=== PATIENT | male | born 1935 | race Caucasian/White ===

== ENCOUNTER 2019-07-12 16:01 | Observation (INO) | payer MEDICARE, OTHER ==
[~2019-07-12] VITALS: Ht 170.2 cm; Wt 67.1 kg
[~2019-07-12 16:01] MED LIST: ATOR10; Aspir 8181 MG PO; Fish Oil 10001000 MG PO; GENT.3OPSA OD; HYDACE5 PO; METF500 PO; OXYACE5T PO; TAMS.4ER PO; THERA1 EACH PO
[2019-07-12] MEDS ORDERED: METOPROLOL SUCC25 MG PO (16:16)
[2019-07-12] MEDS ORDERED: Prinivil5 MG PO (16:16)
[2019-07-12] MEDS ORDERED: LEVSOD50 PO (16:16)
[2019-07-12] MEDS ORDERED: ATORVASTATIN CA40 MG PO (16:16)
[2019-07-12 16:36] LABS: BASOPHILS ABSOLUTE AUTO 0.09 K/mm3 (0.00-0.23); BASOPHILS PERCENT AUTO 1 % (0-2); EOSINOPHILS ABSOLUTE AUTO 0.41 K/mm3 (0.00-0.68); EOSINOPHILS PERCENT AUTO 4 % (0-6); Hematocrit 44.4 % (37.0-53.0); Hemoglobin 14.2 g/dL (13.5-17.5); IMMATURE GRAN ABSOLUTE AUTO 0.03 K/mm3 (0.00-0.10); IMMATURE GRAN PERCENT AUTO 0 % (0-1); LYMPHOCYTES ABSOLUTE AUTO 2.51 K/mm3 (0.84-5.20); LYMPHOCYTES PERCENT AUTO 24 % (21-46); MONOCYTES ABSOLUTE AUTO 0.91 K/mm3 (0.16-1.47); MONOCYTES PERCENT AUTO 9 % (4-13); Mean Corpuscular HGB 30.7 pg (26.0-34.0); Mean Corpuscular Volume 96 fL (80-100); Mean Platelet Volume 11.3 fL (9.1-12.4); NEUTROPHILS ABSOLUTE AUTO 6.64 K/mm3 (1.96-9.15); NEUTROPHILS PERCENT AUTO 63 % (41-73); Platelet Count 236 K/mm3 (150-400); RDW Coefficient Variation 13.6 % (11.7-14.2); RDW Standard Deviation 48.2 fL (35.1-46.3); Red Blood Cell Count 4.62 M/mm3 (4.30-5.90); White Blood Cell Count 10.59 K/mm3 (4.00-11.30)
[2019-07-12 16:50] LABS: Alanine Aminotransfer (ALT/SGP 24 U/L (12-78); Albumin, Blood 3.5 g/dL (3.4-5.0); Albumin/Globulin Ratio 0.9 (0.8-1.8); Alk Phos 53 U/L (50-136); Anion Gap 6 mmol/L (6-16); Aspartate Aminotrans (AST/SGOT 25 U/L (12-37); Bilirubin, Total 0.3 mg/dL (0.1-1.0); Blood Urea Nitrogen 11 mg/dL (8-24); Bun/Creatinine Ratio 13.1 (12.0-20.0); CO2, Blood 27 mmol/L (21-32); Calcium, Blood 9.3 mg/dL (8.5-10.1); Chloride, Blood 107 mmol/L (98-108); Creatinine, Blood 0.84 mg/dL (0.60-1.20); Globulin, Blood 3.9 g/dL (2.2-4.0); Glomerular Filtration Rate >60 (60-); Glucose, Blood 103 mg/dL (70-99); Potassium, Blood 3.9 mmol/L (3.5-5.5); Sodium, Blood 140 mmol/L (136-145); Total Protein, Blood 7.4 g/dL (6.4-8.2); Troponin I <0.015 ng/mL (0.000-0.040)
[2019-07-12] MEDS ORDERED: THERA-D2000 UNIT PO (17:30)
--- NOTE | 2019-07-12 21:45 | NUR ---
*LATE ENTRY* PCU HEADLINE WRITER CALLED AROUND 2119 STATING PT WAS SINUS STELLA W/HR 48. NOTIFIED CHARGE NURSE EARL Harvey. SINCE PT WAS STELLA EARLIER IN ER SHE RECOMMENDED MONITORING PT @THIS TIME. PT DENIES SOB, NAUSEA, HEART PALPATIONS OR ANY CHEST PAIN/PRESSURE.
[2019-07-12 23:17] LABS: CPK Creatine Kinase 60 U/L (39-308); Creatine Kinase MB Index 3.3 (0.0-4.0); Troponin I <0.015 ng/mL (0.000-0.040)
--- NOTE | 2019-07-13 04:43 | NUR ---
SHIFT SUMMARY ADMITTED LAST NIGHT FOR CHEST PRESSURE/PAIN. DESCRIBES PAIN A "SQUEEZING BAND ACROSS CHEST" & STATES IT "FELT IF MY HEART WAS QUIVERING." AOX4. FOLLOWS DIRECTIONS, ANSWERS QUESTIONS APPROPRIATELY. DENIES CHILLS, DYSPNEA, NAUSEA, EMESIS, PALPATATIONS. REPORTS MILD HEADACHE THIS AM, MEDICATED W/TYLENOL PER ORDERS. DENIES ANY CHEST PAIN OR PRESSURE T/O SHIFT. STATES HE HAS FELT "BETTER" SINCE COMING TO THE HOSPITAL. TELE IN PLACE, PT SINUS STELLA W/HR 47-50'S. STEADY GAIT, INDEPENDENT IN ROOM, CALL LIGHT IN REACH. WILL CONTINUE TO MONITOR.
[2019-07-13 07:29] LABS: Alanine Aminotransfer (ALT/SGP 22 U/L (12-78); Albumin, Blood 2.9 g/dL (3.4-5.0); Albumin/Globulin Ratio 0.9 (0.8-1.8); Alk Phos 44 U/L (50-136); Anion Gap 4 mmol/L (6-16); Aspartate Aminotrans (AST/SGOT 24 U/L (12-37); Bilirubin, Total 0.4 mg/dL (0.1-1.0); Blood Urea Nitrogen 16 mg/dL (8-24); Bun/Creatinine Ratio 16.7 (12.0-20.0); CO2, Blood 27 mmol/L (21-32); Calcium, Blood 8.9 mg/dL (8.5-10.1); Chloride, Blood 112 mmol/L (98-108); Creatinine, Blood 0.96 mg/dL (0.60-1.20); Globulin, Blood 3.4 g/dL (2.2-4.0); Glomerular Filtration Rate >60 (60-); Glucose, Blood 109 mg/dL (70-99); Potassium, Blood 4.2 mmol/L (3.5-5.5); Sodium, Blood 143 mmol/L (136-145); Total Protein, Blood 6.3 g/dL (6.4-8.2)
[2019-07-13 07:35] LABS: CPK Creatine Kinase 62 U/L (39-308); Creatine Kinase MB 1.8 ng/mL (0.0-3.6); Creatine Kinase MB Index 2.9 (0.0-4.0); Troponin I <0.015 ng/mL (0.000-0.040)
[2019-07-13] MEDS ORDERED: NITR.4SL SL (12:52)
--- NOTE | 2019-07-13 13:29 | NUR ---
DISCHARGE INSTRUCTIONS VERBALIZED TO PATIENT. A PRINTED COPY OF THE DISCHARGE INSTRUCTIONS WELL EDUCATIONAL MATERIAL REGARDING CHEST PAIN AND ECHOCARDIOGRAM ALSO PROVIDED TO THE PATIENT FOR REFERENCE. IV AND TELE REMOVED. PATIENT TO FOLLOW-UP FOR HIS ECHO ON AN OUTPATIENT BASIS PER DR KANG. PATIENT IN ROOM GETTING READY TO DISCHARGE.
--- NOTE | 2019-07-13 13:41 | NUR ---
PATIENT DISCHARGED HOME WITH AT 1330.
== END 2019-07-13 13:41 | disposition home or self-care (01) ==
LOC: ER 16:01 → MEDS 16:02
PROVIDERS: Emergency Medicine; ADMIT Internal Medicine
DX: R07.9 Chest pain, unspecified (principal); I16.0 Hypertensive urgency; R01.1 Cardiac murmur, unspecified; I25.10 Atherosclerotic heart disease of native coronary artery without angina pectoris; E11.51 Type 2 diabetes mellitus with diabetic peripheral angiopathy without gangrene; I73.9 Peripheral vascular disease, unspecified; I10 Essential (primary) hypertension; E78.5 Hyperlipidemia, unspecified; E03.9 Hypothyroidism, unspecified; K21.9 Gastro-esophageal reflux disease without esophagitis; M19.90 Unspecified osteoarthritis, unspecified site; Z87.442 Personal history of urinary calculi; Z95.1 Presence of aortocoronary bypass graft; Z79.899 Other long term (current) drug therapy; Z79.82 Long term (current) use of aspirin; Z79.84 Long term (current) use of oral hypoglycemic drugs; Z88.0 Allergy status to penicillin; Z87.891 Personal history of nicotine dependence; Z85.46 Personal history of malignant neoplasm of prostate; Z91.14 Patient's other noncompliance with medication regimen
CPT/HCPCS: 36415; 71045; 80053; 82550; 82553; 82947; 84484; 85025; 93005; 93010; 96372; 99285-25; A9270; G0378; J1644

== ENCOUNTER 2022-07-13 05:35 | Emergency (ER) | payer MEDICARE, OTHER ==
[~2022-07-13] VITALS: Ht 170.2 cm; Wt 72.6 kg
[~2022-07-13 05:35] MED LIST changes: +ATORVASTATIN CA40 MG PO; +LEVSOD50 PO; +METOPROLOL SUCC25 MG PO; +NITR.4SL SL; +OMEP20ER PO; +Prinivil5 MG PO; +THERA-D2000 UNIT PO
[2022-07-13 06:17] LABS: BASOPHILS ABSOLUTE AUTO 0.09 K/mm3 (0.00-0.23); BASOPHILS PERCENT AUTO 1 % (0-2); EOSINOPHILS ABSOLUTE AUTO 0.46 K/mm3 (0.00-0.68); EOSINOPHILS PERCENT AUTO 5 % (0-6); Hematocrit 39.3 % (37.0-53.0); Hemoglobin 12.8 g/dL (13.5-17.5); IMMATURE GRAN ABSOLUTE AUTO 0.03 K/mm3 (0.00-0.10); IMMATURE GRAN PERCENT AUTO 0 % (0-1); LYMPHOCYTES ABSOLUTE AUTO 2.71 K/mm3 (0.84-5.20); LYMPHOCYTES PERCENT AUTO 27 % (21-46); MONOCYTES PERCENT AUTO 8 % (4-13); Mean Corpuscular HGB 30.1 pg (26.0-34.0); Mean Corpuscular HGB Conc 32.6 g/dL (31.5-36.5); Mean Corpuscular Volume 93 fL (80-100); Mean Platelet Volume 11.7 fL (9.1-12.4); NEUTROPHILS ABSOLUTE AUTO 5.89 K/mm3 (1.96-9.15); NEUTROPHILS PERCENT AUTO 59 % (41-73); Platelet Count 216 K/mm3 (150-400); RDW Coefficient Variation 14.1 % (11.7-14.2); RDW Standard Deviation 47.6 fL (35.1-46.3); Red Blood Cell Count 4.25 M/mm3 (4.30-5.90); White Blood Cell Count 9.98 K/mm3 (4.00-11.30)
[2022-07-13 06:31] LABS: Albumin, Blood 3.1 g/dL (3.4-5.0); Albumin/Globulin Ratio 0.9 (0.8-1.8); Bilirubin, Total 0.4 mg/dL (0.1-1.0); Bun/Creatinine Ratio 17.5 (12.0-20.0); Calcium, Blood 9.6 mg/dL (8.5-10.1); Creatinine, Blood 0.86 mg/dL (0.60-1.20); Globulin, Blood 3.3 g/dL (2.2-4.0); Magnesium, Blood 1.7 mg/dL (1.6-2.4); Potassium, Blood 3.8 mmol/L (3.5-5.5); Total Protein, Blood 6.4 g/dL (6.4-8.2)
== END 2022-07-13 10:12 | disposition home or self-care (01) ==
LOC: ER 05:35
PROVIDERS: Student in an Organized Health Care Education/Training Program
DX: R10.13 Epigastric pain (principal); I25.10 Atherosclerotic heart disease of native coronary artery without angina pectoris; E11.51 Type 2 diabetes mellitus with diabetic peripheral angiopathy without gangrene; I73.9 Peripheral vascular disease, unspecified; I10 Essential (primary) hypertension; K21.9 Gastro-esophageal reflux disease without esophagitis; Z88.0 Allergy status to penicillin; Z79.899 Other long term (current) drug therapy; Z79.82 Long term (current) use of aspirin; Z79.84 Long term (current) use of oral hypoglycemic drugs
CPT/HCPCS: 36415; 71046; 80053; 83690; 83735; 84484; 85025; 93005; 93010

== ENCOUNTER 2022-09-15 06:06 | Day surgery (SDC) | payer MEDICARE, OTHER ==
[~2022-09-15] VITALS: Ht 172.7 cm; Wt 65.7 kg
[2022-09-15] MEDS ORDERED: SYNTHROID PO (07:04)
--- NOTE | 2022-09-15 08:54 | NUR ---
09/15/22 0854 ITZ SPENCER PT STATES BACK ISN'T REALLY PAINFUL BUT HE "KNOWS ITS THERE". GAVE 10/27 PT DIDN'T SPECIFY.
== END 2022-09-15 09:25 | disposition home or self-care (01) ==
LOC: ORSCSDS 06:06
PROVIDERS: Surgery
PROC: 0JB70ZX Excision of Back Subcutaneous Tissue and Fascia, Open Approach, Diagnostic (ICD-10-PCS; principal; 2022-09-15 07:30)
DX: D17.1 Benign lipomatous neoplasm of skin and subcutaneous tissue of trunk (principal); I10 Essential (primary) hypertension; I25.10 Atherosclerotic heart disease of native coronary artery without angina pectoris; E78.5 Hyperlipidemia, unspecified; Z87.891 Personal history of nicotine dependence; E11.9 Type 2 diabetes mellitus without complications; E03.9 Hypothyroidism, unspecified; I25.2 Old myocardial infarction; Z79.84 Long term (current) use of oral hypoglycemic drugs; Z79.899 Other long term (current) drug therapy; Z79.82 Long term (current) use of aspirin; Z85.46 Personal history of malignant neoplasm of prostate
CPT/HCPCS: 82947; 88304; J0690; J2370; J2405; J2704; J2795; J3010; J7120